=== PATIENT | male | born 1970 | race Caucasian/White ===

== ENCOUNTER 2020-02-25 08:46 | Observation (INO) | payer BC ==
[2020-02-25] MEDS ORDERED: SODIUM CHLORIDE 0.9% 1,000 ML IV STA (09:15)
[2020-02-25] MEDS ORDERED: DILTIAZEM 125 MG in SODIUM CHLORIDE 0.9% 100 ML IV SCH (09:15)
[2020-02-25] MEDS ORDERED: ASPIRIN 81 MG PO STA (09:15)
--- NOTE | 2020-02-25 09:20 | ED ---
General Adult HPI - General Chief complaint: Dizziness Stated complaint: Near syncope Time Seen by Provider: 02/25/20 09:00 Source: patient, RN notes reviewed Mode of arrival: ambulatory Limitations: no limitations - History of Present Illness Initial comments: Patient is a pleasant 49-year-old male presenting to the emergency department with near syncopal episode. Episode occurred this morning when getting out of bed. Patient felt very lightheaded like she was given a pass out. Patient did fall and struck his chest and lip. Patient states these injuries were minimal and did not cause him any significant discomfort. Patient states he is no lo nger dizzy. Patient states he never fully passed out. No headache or confusion or weakness or change in mental status. No chest pain or dyspnea or palpitations. No leg pain or swelling. No history of similar symptoms previously. No history of previous arrhythmia. Patient states she does have a family history of atrial fibrillation with his father. - Related Data Home Medications Medication Instructions Recorded Confirmed metFORMIN HCL [Glucophage] 1,000 mg PO BID 02/25/20 02/25/20 Allergies Allergy/AdvReac Type Severity Reaction Status Date / Time No Known Allergies Allergy Verified 02/25/20 09:50 Review of Systems ROS Statement: Those systems with pertinent positive or pertinent negative responses have been documented in the HPI. ROS Other: All systems not noted in ROS Statement are negative. Constitutional: Denies: fever Eyes: Denies: eye pain ENT: Denies: ear pain Respiratory: Denies: dyspnea Cardiovascular: Denies: chest pain, palpitations Endocrine: Denies: fatigue Gastrointestinal: Denies: abdominal pain Genitourinary: Denies: dysuria Musculoskeletal: Denies: back pain Skin: Denies: rash Neurological: Denies: headache, weakness, confusion Past Medical History Past Medical History: Diabetes Mellitus History of Any Multi-Drug Resistant Organisms: None Reported Past Surgical History: No Surgical Hx Reported Past Psychological History: No Psychological Hx Reported Smoking Status: Never smoker Past Alcohol Use History: None Reported Past Drug Use History: None Reported General Exam Limitations: no limitations General appearance: alert, in no apparent distress Head exam: Present: atraumatic, normocephalic Eye exam: Present: normal appearance, PERRL, EOMI. Absent: nystagmus ENT exam: Present: normal oropharynx, other (Lower lip abrasion) Neck exam: Present: normal inspection. Absent: tenderness Respiratory exam: Present: normal lung sounds bilaterally, other (Abrasion left chest without tenderness) Cardiovascular Exam: Present: tachycardia, irregular rhythm Expanded Peripheral pulses: 2+: Radial (R), Radial (L), Dorsalis Pedis (R), Dorsalis Pedis (L) GI/Abdominal exam: Present: soft. Absent: tenderness Extremities exam: Present: normal inspection. Absent: pedal edema, calf tenderness Neurological exam: Present: alert, oriented X3, CN II-XII intact. Absent: motor sensory deficit Expanded Neurological exam: Present: protecting the airway Speech: Present: fluid speech Cranial nerves: EOM's Intact: Normal Motor strength exam: RUE: 5, LUE: 5, RLE: 5, LLE: 5 Eye Response: (4) open spontaneously Motor Response: (6) obeys commands Verbal Response: (5) oriented Psychiatric exam: Present: normal affect, normal mood Skin exam: Present: normal color Course Vital Signs 02/25/20 02/25/20 02/25/20 08:49 09:19 09:42 Temperature 98.4 F Pulse Rate 52 L 158 H 149 H Respiratory 18 18 16 Rate Blood Pressure 110/63 121/86 103/85 O2 Sat by Pulse 99 98 Oximetry EKG Findings - EKG Comments: EKG Findings:: A. fib with RVR, rate 162. QRS 88. QT 38. QTC 472. Normal axis. Inferior Q waves. No acute ST change. Medical Decision Making - Medical Decision Making Patient reevaluated and somewhat improved. Heart rate between 1:30 and 140 on Cardizem drip. Cardizem drip will be increased. Patient is updated on results and plan. Dr. Rutledge has been paged for admission, covering for Dr. Carney, who admits for Dr. Bowers. - Lab Data Result diagrams: 02/25/20 09:10 02/25/20 09:10 Lab Results 02/25/20 02/25/20 02/25/20 Range/Units 09:10 09:10 09:10 WBC 13.0 H (3.8-10.6) k/uL RBC 5.31 (4.30-5.90) m/uL Hgb 16.3 (13.0-17.5) gm/dL Hct 48.2 (39.0-53.0) % MCV 90.7 (80.0-100.0) fL MCH 30.7 (25.0-35.0) pg MCHC 33.9 (31.0-37.0) g/dL RDW 12.5 (11.5-15.5) % Plt Count 196 (150-450) k/uL Neutrophils % 73 % Lymphocytes % 10 % Monocytes % 12 % Eosinophils % 1 % Basophils % 0 % Neutrophils # 9.5 H (1.3-7.7) k/uL Lymphocytes # 1.4 (1.0-4.8) k/uL Monocytes # 1.5 H (0-1.0) k/uL Eosinophils # 0.2 (0-0.7) k/uL Basophils # 0.1 (0-0.2) k/uL PT 10.3 (9.0-12.0) sec INR 1.0 (<1.2) APTT 23.0 (22.0-30.0) sec Sodium 137 (137-145) mmol/L Potassium 4.3 (3.5-5.1) mmol/L Chloride 102 (98-107) mmol/L Carbon Dioxide 27 (22-30) mmol/L Anion Gap 8 mmol/L BUN 15 (9-20) mg/dL Creatinine 0.73 (0.66-1.25) mg/dL Est GFR (CKD-EPI)AfAm >90 (>60 ml/min/1.73 sqM) Est GFR (CKD-EPI)NonAf >90 (>60 ml/min/1.73 sqM) Glucose 209 H (74-99) mg/dL Calcium 9.3 (8.4-10.2) mg/dL Magnesium 1.6 (1.6-2.3) mg/dL Total Bilirubin 0.8 (0.2-1.3) mg/dL AST 21 (17-59) U/L ALT 17 (4-49) U/L Alkaline Phosphatase 47 (38-126) U/L Troponin I (0.000-0.034) ng/mL Total Protein 7.3 (6.3-8.2) g/dL Albumin 4.3 (3.5-5.0) g/dL TSH 1.030 (0.465-4.680) mIU/L Free T4 1.53 (0.78-2.19) ng/dL Free T3 pg/mL 4.8 (2.8-5.3) pg/ml 02/25/20 Range/Units 09:10 WBC (3.8-10.6) k/uL RBC (4.30-5.90) m/uL Hgb (13.0-17.5) gm/dL Hct (39.0-53.0) % MCV (80.0-100.0) fL MCH (25.0-35.0) pg MCHC (31.0-37.0) g/dL RDW (11.5-15.5) % Plt Count (150-450) k/uL Neutrophils % % Lymphocytes % % Monocytes % % Eosinophils % % Basophils % % Neutrophils # (1.3-7.7) k/uL Lymphocytes # (1.0-4.8) k/uL Monocytes # (0-1.0) k/uL Eosinophils # (0-0.7) k/uL Basophils # (0-0.2) k/uL PT (9.0-12.0) sec INR (<1.2) APTT (22.0-30.0) sec Sodium (137-145) mmol/L Potassium (3.5-5.1) mmol/L Chloride (98-107) mmol/L Carbon Dioxide (22-30) mmol/L Anion Gap mmol/L BUN (9-20) mg/dL Creatinine (0.66-1.25) mg/dL Est GFR (CKD-EPI)AfAm (>60 ml/min/1.73 sqM) Est GFR (CKD-EPI)NonAf (>60 ml/min/1.73 sqM) Glucose (74-99) mg/dL Calcium (8.4-10.2) mg/dL Magnesium (1.6-2.3) mg/dL Total Bilirubin (0.2-1.3) mg/dL AST (17-59) U/L ALT (4-49) U/L Alkaline Phosphatase (38-126) U/L Troponin I <0.012 (0.000-0.034) ng/mL Total Protein (6.3-8.2) g/dL Albumin (3.5-5.0) g/dL TSH (0.465-4.680) mIU/L Free T4 (0.78-2.19) ng/dL Free T3 pg/mL (2.8-5.3) pg/ml - Radiology Data Radiology results: image reviewed (Chest x-ray shows no acute process) Critical Care Time Critical Care Time: Yes Total Critical Care Time: 32 Disposition Clinical Impression: Atrial fibrillation with RVR Disposition: ADMITTED IP TO THIS HOSP Is patient prescribed a controlled substance at d/c from ED?: No Referrals: Hussein Bowers MD [Primary Care Provider] - 1-2 days Decision Time: 10:12
[2020-02-25 09:31] LABS: Basophils # (A) 0.1 k/uL (0-0.2); Basophils % (A) 0 %; Eosinophils # (A) 0.2 k/uL (0-0.7); Eosinophils % (A) 1 %; HCT 48.2 % (39.0-53.0); HGB 16.3 gm/dL (13.0-17.5); Lymphocytes # (A) 1.4 k/uL (1.0-4.8); Lymphocytes % (A) 10 %; MCH 30.7 pg (25.0-35.0); MCHC 33.9 g/dL (31.0-37.0); MCV 90.7 fL (80.0-100.0); Mean Platelet Volume 8.1; Monocytes # (A) 1.5 k/uL (0-1.0); Monocytes % (A) 12 %; Neutrophils # (A) 9.5 k/uL (1.3-7.7); Neutrophils % (A) 73 %; Platelet Count 196 k/uL (150-450); RBC 5.31 m/uL (4.30-5.90); RDW 12.5 % (11.5-15.5)
[2020-02-25 09:39] LABS: ALT 17 U/L (4-49); AST 21 U/L (17-59); African American GFR (CKD) >90 (>60 ml/min/1.73 sqM); Albumin 4.3 g/dL (3.5-5.0); Alkaline Phosphatase 47 U/L (38-126); Anion Gap 8 mmol/L; Blood Urea Nitrogen 15 mg/dL (9-20); Calcium 9.3 mg/dL (8.4-10.2); Carbon Dioxide 27 mmol/L (22-30); Chloride 102 mmol/L (98-107); Glucose 209 mg/dL (74-99); Magnesium 1.6 mg/dL (1.6-2.3); Non-African American GFR(CKD) >90 (>60 ml/min/1.73 sqM); Potassium 4.3 mmol/L (3.5-5.1); Sodium 137 mmol/L (137-145); Total Bilirubin 0.8 mg/dL (0.2-1.3); Total Protein 7.3 g/dL (6.3-8.2)
--- NOTE | 2020-02-25 09:42 | XR ---
EXAMINATION TYPE: XR chest 1V portable DATE OF EXAM: 02/25/2020 HISTORY: dysrhythmia. REFERENCE: NONE. FINDINGS: Heart size is within normal limits. Lungs appear clear. Pleural spaces are clear. IMPRESSION: NO ACUTE INTRATHORACIC ABNORMALITY.
[2020-02-25 09:43] LABS: Prothrombin Time 10.3 sec (9.0-12.0)
[2020-02-25 09:56] LABS: T4, Free (Free Thyroxine) 1.53 ng/dL (0.78-2.19)
[2020-02-25] MEDS ORDERED: HEPARIN SODIUM,PORCINE 5,000 UNIT/ML 1 ML VIAL IV ONE (10:13)
[2020-02-25] MEDS ORDERED: HEPARIN SODIUM,PORCINE 5,000 UNIT/ML 1 ML VIAL IV PRN (10:13)
[2020-02-25] MEDS ORDERED: HEPARIN SOD,PORK IN 0.45% NACL 25,000 UNIT in 0.45% NACL 1 250ML.BAG IV SCH (10:15)
[2020-02-25] MEDS: METOPROLOL TARTRATE 25 MG TAB PO SCH ×2 (13:07→20:48)
[2020-02-25 16:52] LABS: Glucose,Whole Blood 179 mg/dL (75-99)
[2020-02-25] MEDS: metFORMIN 500 MG TAB PO SCH (17:04)
[2020-02-25 21:54] LABS: Glucose,Whole Blood 149 mg/dL (75-99)
--- NOTE | 2020-02-25 23:07 | P.HPIM ---
History of Present Illness H&P Date: 02/25/20 Chief Complaint: Dizziness Patient is a 49-year-old male with a known history of recently diagnosed diabetes type 2 currently on metformin came to ER with complaints of dizziness and near syncope. Patient says that she felt very dizzy this morning after he got out of bed and did fall and struck his chest and lip. Denied any complaints of palpitations. No complaints of chest pain or shortness of breath. Patient has been having dizziness on and off but is most severe today.. She states that he never fully passed out. No complaints of headache. No focal weakness. No nausea vomiting or abdominal pain or diarrhea. No leg swelling. Denied any recent exertional short of breath. No history of arrhythmia. Patient says that his father had heart disease at older age and was also diagnosed with atrial fibrillation. Chest x-ray showed no acute intrathoracic abnormality. EKG showed A. fib with RVR. TSH 1.03 with normal limits. Free T4 are within normal limits. WBC 13.0 other laboratory data within normal limits Patient was started on Cardizem drip and heparin drip. Review of Systems Constitutional: Patient denies any fever or chills . No generalized weakness or weight loss. Abdomen: Patient denied nausea vomiting and diarrhea and abdominal pain. Cardiovascular: Patient denies any chest pain or short of breath no palpitations. Respiratory: patient denied any cough is from production. No shortness of b reath Neurologic: Patient denied any numbness or tingling headache. Dizziness and near syncope. Musculoskeletal: Patient denies any complaints of joint swelling or deformity. Skin: Negative Psychiatric: Negative Endocrine: No heat or cold intolerance. No recent weight gain. Genitourinary: No dysuria or hematuria. All other 14 point ROS negative except the above Past Medical History Past Medical History: Diabetes Mellitus History of Any Multi-Drug Resistant Organisms: None Reported Past Surgical History: No Surgical Hx Reported Past Psychological History: No Psychological Hx Reported Smoking Status: Never smoker Past Alcohol Use History: None Reported Past Drug Use History: None Reported Medications and Allergies Home Medications Medication Instructions Recorded Confirmed Type metFORMIN HCL [Glucophage] 1,000 mg PO BID 02/25/20 02/25/20 History Allergies Allergy/AdvReac Type Severity Reaction Status Date / Time No Known Allergies Allergy Verified 02/25/20 09:50 Physical Exam Vitals: Vital Signs Temp Pulse Resp BP Pulse Ox 02/25/20 10:57 98 F 113 H 18 113/60 98 02/25/20 10:13 131 H 18 119/93 98 02/25/20 09:42 149 H 16 103/85 02/25/20 09:19 158 H 18 121/86 98 02/25/20 08:49 98.4 F 52 L 18 110/63 99 Intake and Output 02/24/20 02/25/20 02/25/20 22:59 06:59 14:59 Intake Total 2.333 Balance 2.333 Intake: Intake, IV Titration 2.333 Amount Diltiazem 125 mg In 2.333 Sodium Chloride 0.9% 100 ml @ 7.5 MG/HR 7.5 mls/hr IV .[id number] [facility] Rx#: [id number] Other: Weight 99.337 kg PHYSICAL EXAMINATION: Patient is lying in the bed comfortably, no acute distress, awake alert and oriented.. HEENT: Normocephalic. Neck is supple. Pupils reactive. Nostrils clear. Oral cavity is moist. Ears reveal no drainage. Neck reveals no JVD, carotid bruits, or thyromegaly. CHEST EXAMINATION: Trachea is central. Symmetrical expansion. Lung jarvis clear to auscultation and percussion. CARDIAC: Normal S1, S2 with no gallops. No murmurs ABDOMEN: Soft. Bowel sounds normal. No organomegaly. No abdominal bruits. Extremities: reveal no edema. No clubbing or cyanosis Neurologically awake, alert, oriented x3 with well-coordinated movements. No focal deficits noted Skin: No rash or skin lesions. Psychiatric: Coperative. Nonsuicidal Musculoskeletal: No joint swelling or deformity. Normal range of motion. Results CBC & Chem 7: 02/25/20 09:10 02/25/20 09:10 Labs: Abnormal Lab Results - Last 24 Hours (Table) 02/25/20 02/25/20 Range/Units 09:10 09:10 WBC 13.0 H (3.8-10.6) k/uL Neutrophils # 9.5 H (1.3-7.7) k/uL Monocytes # 1.5 H (0-1.0) k/uL Glucose 209 H (74-99) mg/dL Thrombosis Risk Factor Assmnt - DVT/VTE Prophylaxis DVT/VTE Prophylaxis: Pharmacologic Prophylaxis ordered Assessment and Plan Assessment: New onset atrial fibrillation with rapid ventricular rate. Dizziness and near syncope secondary to above Diabetes type 2 and recently diagnosed on metformin at home Obesity with BMI 30.5 Plan: Patient will be continued on telemetry monitoring. Was started on heparin drip and Cardizem drip. Patient is converted back to sinus rhythm now. Started on beta blockers. Cardiology was consulted and 2-D echocardiogram was ordered. Further recommendations based on the clinical course. Time with Patient: Greater than 30
[2020-02-26 04:34] LABS: Mean Platelet Volume 7.8; Platelet Count 184 k/uL (150-450)
[2020-02-26 04:42] VITALS: RESP 18
[2020-02-26 04:48] LABS: Cholesterol 154 mg/dL (<200); HDL Cholesterol 35 mg/dL (40-60); LDL Cholesterol,Calculated 95 mg/dL (0-99); Triglycerides 121 mg/dL (<150)
[2020-02-26] MEDS: metFORMIN 500 MG TAB PO SCH (08:09)
[2020-02-26] MEDS: METOPROLOL TARTRATE 25 MG TAB PO SCH (08:09)
[2020-02-26 08:16] VITALS: BP 127/78; PULSE 84; TEMP 98.1
[2020-02-26] MEDS ORDERED: APIXABAN 5 MG TAB PO SCH (09:00)
[2020-02-26] MEDS ORDERED: ASPIRIN 325 MG TAB PO SCH (09:00)
--- NOTE | 2020-02-26 18:23 | P.CRDCN ---
History of Present Illness Consult date: 02/26/20 History of present illness: This is Dr. ALMODOVAR dictating a consult note on this patient Impression: Paroxysmal atrial fibrillation with RVR, symptomatic with syncope Type 2 diabetes on metformin Plan: Rate control medications, Metoprolol 25 mg twice Watch blood pressure Lipid panel Short-term anticoagulation until his CHADVASC score is accurately determine Patient go home today and follow-up with me within the next one to 2 weeks History of present illness: 48-year-old male patient with a near syncopal spell. He was getting out of bed and felt very lightheaded and passed out. He struck his chest and left. He had minimal injuries. No headaches No other prior symptoms of prodrome Is a family history of atrial fibrillation He is diabetic and is on metformin He is a never smoker BUN 15 creatinine 0.73 TSH 1.03 Review of systems No fever chills or rigors No cough phlegm or expectoration No nausea vomiting or diarrhea No hematuria dysuria No muscular skeletal complaints No neurologic complaints No skin lesions On examination Patient is afebrile, pulse rate in 70s Blood pressure 113/70 mmHg Normal heart sounds normal S1 normal S2 no murmurs or gallop Clear breath sounds no rhonchi no crackles Abdomen is soft nontender Extremities warm edema Review of data Chest x-ray normal Bradycardia ECG shows atrial fibrillation with RVR Past Medical History Past Medical History: Diabetes Mellitus History of Any Multi-Drug Resistant Organisms: None Reported Past Surgical History: No Surgical Hx Reported Past Psychological History: No Psychological Hx Reported Smoking Status: Never smoker Past Alcohol Use History: None Reported Past Drug Use History: None Reported Medications and Allergies Home Medications Medication Instructions Recorded Confirmed Type metFORMIN HCL [Glucophage] 1,000 mg PO BID 02/25/20 02/25/20 History Apixaban [Eliquis] 5 mg PO BID #30 tab 02/26/20 Rx Metoprolol Tartrate [Lopressor] 25 mg PO BID #60 tab 02/26/20 Rx Allergies Allergy/AdvReac Type Severity Reaction Status Date / Time No Known Allergies Allergy Verified 02/25/20 09:50 Physical Exam Vitals: Vital Signs Temp Pulse Pulse Resp BP BP Pulse Ox 02/25/20 15:36 98.2 F 87 18 124/68 98 02/25/20 14:48 88 02/25/20 12:00 98.1 F 88 18 127/63 97 02/25/20 10:57 98 F 113 H 18 113/60 98 02/25/20 10:13 131 H 18 119/93 98 02/25/20 09:42 149 H 16 103/85 02/25/20 09:19 158 H 18 121/86 98 02/25/20 08:49 98.4 F 52 L 18 110/63 99 Intake and Output 02/25/20 02/25/20 02/25/20 06:59 14:59 22:59 Intake Total 2.333 318.167 Balance 2.333 318.167 Intake: Intake, IV Titration 2.333 78.167 Amount Diltiazem 125 mg In 2.333 Sodium Chloride 0.9% 100 ml @ 7.5 MG/HR 7.5 mls/hr IV .[id number] [facility] Rx#: [id number] Heparin Sod,Pork in 0.45% 78.167 NaCl 25,000 unit In 0.45 % NaCl 1 250ml.bag @ 10. 067 UNITS/KG/HR 10 mls/hr IV .Q24H [facility] Rx#: [id number] Oral 240 Other: Weight 99.337 kg Results 02/26/20 04:16 02/25/20 09:10 Cardiac Enzymes 02/25/20 02/25/20 02/25/20 Range/Units 09:10 09:10 15:57 AST 21 (17-59) U/L Troponin I <0.012 <0.012 (0.000-0.034) ng/mL Coagulation 02/25/20 02/25/20 Range/Units 09:10 15:57 PT 10.3 (9.0-12.0) sec APTT 23.0 30.1 H (22.0-30.0) sec CBC 02/25/20 Range/Units 09:10 WBC 13.0 H (3.8-10.6) k/uL RBC 5.31 (4.30-5.90) m/uL Hgb 16.3 (13.0-17.5) gm/dL Hct 48.2 (39.0-53.0) % Plt Count 196 (150-450) k/uL Comprehensive Metabolic Panel 02/25/20 Range/Units 09:10 Sodium 137 (137-145) mmol/L Potassium 4.3 (3.5-5.1) mmol/L Chloride 102 (98-107) mmol/L Carbon Dioxide 27 (22-30) mmol/L BUN 15 (9-20) mg/dL Creatinine 0.73 (0.66-1.25) mg/dL Glucose 209 H (74-99) mg/dL Calcium 9.3 (8.4-10.2) mg/dL AST 21 (17-59) U/L ALT 17 (4-49) U/L Alkaline Phosphatase 47 (38-126) U/L Total Protein 7.3 (6.3-8.2) g/dL Albumin 4.3 (3.5-5.0) g/dL Current Medications Generic Name Dose Route Start Last Admin Trade Name Freq PRN Reason Stop Dose Admin Heparin Sodium (Porcine) 0 unit 02/25/20 10:13 Heparin IV Q6HR PRN Low PTT Protocol Heparin Sodium/Sodium Chloride 250 mls @ 10 mls/hr 02/25/20 10:15 02/25/20 18:44 25,000 unit/ Sodium Chloride IV 13.067 units/kg/hr .Q24H [facility] 12.98 mls/hr Titration Protocol 10.067 UNITS/KG/HR Metformin HCl 1,000 mg 02/25/20 17:30 02/25/20 17:04 Glucophage PO 1,000 mg BID-W/MEALS [place] Administration Metoprolol Tartrate 25 mg 02/25/20 13:00 02/25/20 13:07 Lopressor PO 25 mg BID MO Administration Intake and Output 02/25/20 02/25/20 02/25/20 06:59 14:59 22:59 Intake Total 2.333 318.167 Balance 2.333 318.167 Intake: Intake, IV Titration 2.333 78.167 Amount Diltiazem 125 mg In 2.333 Sodium Chloride 0.9% 100 ml @ 7.5 MG/HR 7.5 mls/hr IV .[id number] [facility] Rx#: [id number] Heparin Sod,Pork in 0.45% 78.167 NaCl 25,000 unit In 0.45 % NaCl 1 250ml.bag @ 10. 067 UNITS/KG/HR 10 mls/hr IV .Q24H [facility] Rx#: [id number] Oral 240 Other: Weight 99.337 kg Patient Weight 02/26/20 06:59 Weight 99.337 kg 02/25/20 09:10 02/25/20 09:10
[2020-02-27 12:44] LABS: Hemoglobin A1C 7.2 % (4.0-6.0)
== END 2020-02-26 10:02 | disposition home or self-care (01) ==
LOC: EC 08:46 → 3SCARD 10:22
PROVIDERS: ADMIT Hospitalist; ATTEND Hospitalist
DX: I48.0 Paroxysmal atrial fibrillation (principal); E11.9 Type 2 diabetes mellitus without complications; E66.9 Obesity, unspecified; Z68.30 Body mass index [BMI] 30.0-30.9, adult; Z79.01 Long term (current) use of anticoagulants; Z79.84 Long term (current) use of oral hypoglycemic drugs; Z79.899 Other long term (current) drug therapy; Z82.49 Family history of ischemic heart disease and other diseases of the circulatory system; W18.30XA Fall on same level, unspecified, initial encounter; Z03.818 Encounter for observation for suspected exposure to other biological agents ruled out
CPT/HCPCS: 96366; 93005 ×2; 96367; 96376; 96365; 99291; 36415; 84439; 84481; 80061; 80053; 83735; 84443; 84484; 85025; 85049; 85610; 85730 ×2; 83036; 87635; 71045; G0378 ×2; J1644 ×2

== ENCOUNTER 2022-05-14 10:17 | Emergency (ER) | payer BC ==
[2022-05-14 10:23] VITALS: RESP 18; TEMP 97.9
[2022-05-14] MEDS ORDERED: SODIUM CHLORIDE 0.9% 1,000 ML IV STA (10:51)
--- NOTE | 2022-05-14 10:53 | ED ---
General Adult HPI - General Chief complaint: Recheck/Abnormal Lab/Rx Stated complaint: Leg Weakness Time Seen by Provider: 05/14/22 10:25 Source: patient, RN notes reviewed Mode of arrival: ambulatory Limitations: no limitations - History of Present Illness Initial comments: Patient is a pleasant 51-year-old male presenting to the emergency department w ith concern for leg fatigued. Symptoms have been occurring for the past approximately 5 or 6 months. Patient does work long days outside, up to 13 hours. No isolated area of weakness. Both legs seem affected. Patient did previously see a director of digital platforms for atrial fibrillation a couple of years ago. Patient was told to have 24-hour monitor done prior to follow-up. Patient was calling to get that scheduled when he mentioned his symptoms and advised to come to the emergency department. No back pain. No confusion. No speech problems. - Related Data Home Medications Medication Instructions Recorded Confirmed metFORMIN HCL [Glucophage] 1,000 mg PO BID 02/25/20 02/25/20 Previous Rx's Medication Instructions Recorded Apixaban [Eliquis] 5 mg PO BID #30 tab 02/26/20 Metoprolol Tartrate [Lopressor] 25 mg PO BID #60 tab 02/26/20 Allergies Allergy/AdvReac Type Severity Reaction Status Date / Time No Known Allergies Allergy Verified 05/14/22 10:23 Review of Systems ROS Statement: Those systems with pertinent positive or pertinent negative responses have been documented in the HPI. ROS Other: All systems not noted in ROS Statement are negative. Constitutional: Denies: fever Eyes: Denies: eye pain ENT: Denies: ear pain Respiratory: Denies: cough, dyspnea Cardiovascular: Denies: chest pain Endocrine: Reports: as per HPI, fatigue Gastrointestinal: Denies: abdominal pain Genitourinary: Denies: dysuria Musculoskeletal: Denies: back pain Skin: Denies: rash Neurological: Reports: as per HPI. Denies: headache, numbness, paresthesias, confusion Past Medical History Past Medical History: Diabetes Mellitus History of Any Multi-Drug Resistant Organisms: None Reported Past Surgical History: No Surgical Hx Reported Past Psychological History: No Psychological Hx Reported Smoking Status: Never smoker Past Alcohol Use History: None Reported Past Drug Use History: None Reported General Exam Limitations: no limitations General appearance: alert, in no apparent distress Head exam: Present: normocephalic Eye exam: Present: normal appearance, PERRL, EOMI ENT exam: Present: normal oropharynx Neck exam: Present: normal inspection Respiratory exam: Present: normal lung sounds bilaterally Cardiovascular Exam: Present: regular rate, normal rhythm Expanded Peripheral pulses: 2+: Posterior Tibialis (R), Posterior Tibialis (L) GI/Abdominal exam: Present: soft. Absent: tenderness Extremities exam: Present: normal inspection. Absent: pedal edema, calf tenderness Back exam: Present: normal inspection. Absent: tenderness Neurological exam: Present: alert, oriented X3, CN II-XII intact, motor sensory deficit Expanded Neurological exam: Present: protecting the airway Speech: Present: fluid speech Cranial nerves: EOM's Intact: Normal Sensory exam: Lower Extremity Light Touch: Normal Motor strength exam: RUE: 5, LUE: 5, RLE: 5, LLE: 5 Eye Response: (4) open spontaneously Motor Response: (6) obeys commands Verbal Response: (5) oriented Psychiatric exam: Present: normal affect, normal mood Skin exam: Present: normal color Course Vital Signs 05/14/22 10:20 Temperature 97.9 F Pulse Rate 82 Respiratory 18 Rate Blood Pressure 198/95 O2 Sat by Pulse 98 Oximetry EKG Findings - EKG Comments: EKG Findings:: Sinus rhythm rate 72. For screening AV block [place] 209. QRS 120. QT 35. QTC 49. Left axis. Normal QRS. No acute ST change. Medical Decision Making - Medical Decision Making Patient reevaluated and updated. Patient denies any symptoms consistent with early pneumonia. Patient updated on hyperglycemia and need for better control. Patient states he does have an appointment with his doctor however we'll attempt to get sooner 1. - Lab Data Result diagrams: 05/14/22 11:01 05/14/22 11:01 Lab Results 05/14/22 05/14/22 05/14/22 Range/Units 11:01 11:01 11:01 WBC 8.4 (3.8-10.6) k/uL RBC 4.83 (4.30-5.90) m/uL Hgb 15.1 (13.0-17.5) gm/dL Hct 44.4 (39.0-53.0) % MCV 92.0 (80.0-100.0) fL MCH 31.3 (25.0-35.0) pg MCHC 34.0 (31.0-37.0) g/dL RDW 12.3 (11.5-15.5) % Plt Count 180 (150-450) k/uL MPV 8.0 Neutrophils % 68 % Lymphocytes % 14 % Monocytes % 13 % Eosinophils % 1 % Basophils % 0 % Neutrophils # 5.7 (1.3-7.7) k/uL Lymphocytes # 1.2 (1.0-4.8) k/uL Monocytes # 1.1 H (0-1.0) k/uL Eosinophils # 0.1 (0-0.7) k/uL Basophils # 0.0 (0-0.2) k/uL PT 10.5 (9.0-12.0) sec INR 1.0 (<1.2) APTT 24.3 (22.0-30.0) sec Sodium 137 (137-145) mmol/L Potassium 4.7 (3.5-5.1) mmol/L Chloride 99 (98-107) mmol/L Carbon Dioxide 30 (22-30) mmol/L Anion Gap 8 mmol/L BUN 22 H (9-20) mg/dL Creatinine 0.77 (0.66-1.25) mg/dL Est GFR (CKD-EPI)AfAm >90 (>60 ml/min/1.73 sqM) Est GFR (CKD-EPI)NonAf >90 (>60 ml/min/1.73 sqM) Glucose 270 H (74-99) mg/dL Plasma Lactic Acid Ozzy (0.7-2.0) mmol/L Calcium 9.1 (8.4-10.2) mg/dL Phosphorus 2.8 (2.5-4.5) mg/dL Magnesium 1.8 (1.6-2.3) mg/dL Total Bilirubin 0.7 (0.2-1.3) mg/dL AST 30 (17-59) U/L ALT 40 (4-49) U/L Alkaline Phosphatase 69 (38-126) U/L Creatine Kinase 103 (55-170) U/L Troponin I (0.000-0.034) ng/mL Total Protein 7.3 (6.3-8.2) g/dL Albumin 4.3 (3.5-5.0) g/dL TSH 0.689 (0.465-4.680) mIU/L Free T4 1.12 (0.78-2.19) ng/dL Free T3 pg/mL 3.7 (2.8-5.3) pg/ml Urine Color Urine Appearance (Clear) Urine pH (5.0-8.0) Ur Specific [place] (1.001-1.035) Urine Protein (Negative) Urine Glucose (UA) (Negative) Urine Ketones (Negative) Urine Blood (Negative) Urine Nitrite (Negative) Urine Bilirubin (Negative) Urine Urobilinogen (<2.0) mg/dL Ur Leukocyte Esterase (Negative) 05/14/22 05/14/22 05/14/22 Range/Units 11:01 11:01 11:21 WBC (3.8-10.6) k/uL RBC (4.30-5.90) m/uL Hgb (13.0-17.5) gm/dL Hct (39.0-53.0) % MCV (80.0-100.0) fL MCH (25.0-35.0) pg MCHC (31.0-37.0) g/dL RDW (11.5-15.5) % Plt Count (150-450) k/uL MPV Neutrophils % % Lymphocytes % % Monocytes % % Eosinophils % % Basophils % % Neutrophils # (1.3-7.7) k/uL Lymphocytes # (1.0-4.8) k/uL Monocytes # (0-1.0) k/uL Eosinophils # (0-0.7) k/uL Basophils # (0-0.2) k/uL PT (9.0-12.0) sec INR (<1.2) APTT (22.0-30.0) sec Sodium (137-145) mmol/L Potassium (3.5-5.1) mmol/L Chloride (98-107) mmol/L Carbon Dioxide (22-30) mmol/L Anion Gap mmol/L BUN (9-20) mg/dL Creatinine (0.66-1.25) mg/dL Est GFR (CKD-EPI)AfAm (>60 ml/min/1.73 sqM) Est GFR (CKD-EPI)NonAf (>60 ml/min/1.73 sqM) Glucose (74-99) mg/dL Plasma Lactic Acid Ozzy 1.8 (0.7-2.0) mmol/L Calcium (8.4-10.2) mg/dL Phosphorus (2.5-4.5) mg/dL Magnesium (1.6-2.3) mg/dL Total Bilirubin (0.2-1.3) mg/dL AST (17-59) U/L ALT (4-49) U/L Alkaline Phosphatase (38-126) U/L Creatine Kinase (55-170) U/L Troponin I <0.012 (0.000-0.034) ng/mL Total Protein (6.3-8.2) g/dL Albumin (3.5-5.0) g/dL TSH (0.465-4.680) mIU/L Free T4 (0.78-2.19) ng/dL Free T3 pg/mL (2.8-5.3) pg/ml Urine Color Light Yellow Urine Appearance Clear (Clear) Urine pH 6.0 (5.0-8.0) Ur Specific [place] 1.026 (1.001-1.035) Urine Protein Negative (Negative) Urine Glucose (UA) 4+ H (Negative) Urine Ketones Negative (Negative) Urine Blood Negative (Negative) Urine Nitrite Negative (Negative) Urine Bilirubin Negative (Negative) Urine Urobilinogen <2.0 (<2.0) mg/dL Ur Leukocyte Esterase Negative (Negative) Disposition Clinical Impression: Fatigue, Hyperglycemia Disposition: HOME SELF-CARE Condition: Stable Instructions (If sedation given, give patient instructions): Diabetic Hyperglycemia (ED), Fatigue (ED) Additional Instructions: Please do follow-up to in the next couple days for recheck. Discuss blood sugar levels and further therapy for this. Return for increased fatigue, weakness, uncontrolled blood sugar, worsening or changing symptoms or other concerns. Is patient prescribed a controlled substance at d/c from ED?: No Referrals: Hussein Bowers MD [Primary Care Provider] - 1-2 days Time of Disposition: 12:23
[2022-05-14 11:16] LABS: Basophils % (A) 0 %; Eosinophils # (A) 0.1 k/uL (0-0.7); Eosinophils % (A) 1 %; HCT 44.4 % (39.0-53.0); HGB 15.1 gm/dL (13.0-17.5); Lymphocytes # (A) 1.2 k/uL (1.0-4.8); Lymphocytes % (A) 14 %; MCH 31.3 pg (25.0-35.0); Monocytes # (A) 1.1 k/uL (0-1.0); Monocytes % (A) 13 %; Neutrophils # (A) 5.7 k/uL (1.3-7.7); Neutrophils % (A) 68 %; Platelet Count 180 k/uL (150-450); RBC 4.83 m/uL (4.30-5.90); RDW 12.3 % (11.5-15.5); WBC 8.4 k/uL (3.8-10.6)
--- NOTE | 2022-05-14 11:24 | CT ---
EXAMINATION TYPE: CT brain wo con DATE OF EXAM: 05/14/2022 COMPARISON: None HISTORY: weakness CT DLP: 1173.[address] of the brain was performed. The ventricles, basal cisterns and sulci overlying the cerebral convexities demonstrate mild enlargem ent. There is no evidence for intracranial hemorrhage or sulcal effacement. There is decreased attenuation about the periventricular white matter and deep white matter of both c erebral hemispheres, compatible with chronic small vessel ischemia. Differential diagnosis does inclu de demyelination. No mass effects are seen.No midline shift. Osseous calvarium is intact. If symptoms persist consider MRI. IMPRESSION: 1. Age related atrophic and chronic small vessel ischemic change without acute intracranial process s een at this time.
--- NOTE | 2022-05-14 11:27 | XR ---
EXAMINATION TYPE: XR chest 2V DATE OF EXAM: 05/14/2022 COMPARISON: 02/25/2020 HISTORY: Shortness of breath TECHNIQUE: Frontal and lateral views of the chest are obtained. FINDINGS: Scattered senescent parenchymal changes noted. Hyperinflation compatible with COPD. Mild increased density right medial lung base could reflect developing infiltrate. Correlate clinical ly. Heart size is stable. Mediastinal structures are stable and grossly unremarkable. No evidence for hilar prominence. Degenerative changes dorsal spine. IMPRESSION: 1. Mild increased density right medial lung base could reflect developing infiltrate. Correlate clini aaron.
[2022-05-14 11:28] LABS: Partial Thromboplastin Time 24.3 sec (22.0-30.0); Prothrombin Time 10.5 sec (9.0-12.0)
[2022-05-14 11:33] LABS: ALT 40 U/L (4-49); AST 30 U/L (17-59); African American GFR (CKD) >90 (>60 ml/min/1.73 sqM); Albumin 4.3 g/dL (3.5-5.0); Alkaline Phosphatase 69 U/L (38-126); Anion Gap 8 mmol/L; Blood Urea Nitrogen 22 mg/dL (9-20); Calcium 9.1 mg/dL (8.4-10.2); Carbon Dioxide 30 mmol/L (22-30); Chloride 99 mmol/L (98-107); Creatine Kinase 103 U/L (55-170); Glucose 270 mg/dL (74-99); Magnesium 1.8 mg/dL (1.6-2.3); Non-African American GFR(CKD) >90 (>60 ml/min/1.73 sqM); Phosphorus 2.8 mg/dL (2.5-4.5); Potassium 4.7 mmol/L (3.5-5.1); Sodium 137 mmol/L (137-145); Total Bilirubin 0.7 mg/dL (0.2-1.3); Total Protein 7.3 g/dL (6.3-8.2)
[2022-05-14 11:36] LABS: Appearance,Urine Clear (Clear); Bilirubin,Urine Negative (Negative); Blood,Urine Negative (Negative); Color,Urine Light Yellow; Glucose,Urine (UA) 4+ (Negative); Ketones,Urine Negative (Negative); Leukocyte Esterase,Urine Negative (Negative); Nitrite,Urine Negative (Negative); Protein,Urine Negative (Negative); Specific Gravity,Urine 1.026 (1.001-1.035); Urobilinogen,Urine <2.0 mg/dL (<2.0)
[2022-05-14 11:49] LABS: T4, Free (Free Thyroxine) 1.12 ng/dL (0.78-2.19)
[2022-05-14 12:35] VITALS: BP 150/84; PULSE 84
== END 2022-05-14 12:35 | disposition home or self-care (01) ==
LOC: EC 10:17
DX: E11.65 Type 2 diabetes mellitus with hyperglycemia (principal); R53.83 Other fatigue; R53.1 Weakness; Z79.84 Long term (current) use of oral hypoglycemic drugs
CPT/HCPCS: 36415; 70450; 71046; 80053; 81003; 82550; 83605; 83735; 84100; 84439; 84443; 84481; 84484; 85025; 85610; 85730; 93005; 96360; 99285